=== PATIENT | male | born 1975 | race Caucasian/White ===

== ENCOUNTER 2023-01-21 17:07 | Inpatient (IN) | payer BC, MEDICAID, SELFPAY ==
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
[2023-01-21 17:33] VITALS: BP 148/98; PULSE 78; RESP 18; TEMP 36.8; O2SAT 98; BMI 26.9
[2023-01-21] MEDS: Albuterol Sulfate 90 MCG 8 GM INHALER 2 PUFF INHALE (18:34)
[2023-01-21 18:36] LABS: MANUAL DIFF FLAG NO
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
[2023-01-21 18:39] LABS: Basophils Absolute Auto 0.1 X10*3/uL (0.0-0.2); Basophils Percent Auto 0.5 % (0-2); Eosinophils Absolute Auto 0.2 X10*3/uL (0.0-0.4); Eosinophils Percent Auto 1.8 % (0-4); Hematocrit 43.9 % (42.0-52.0); Hemoglobin 15.1 g/dl (14.0-18.0); Imm Gran Abs Auto 0.04 X10*3/uL (0.00-0.03); Imm Gran Pct Auto 0.4 % (0.0-0.4); Lymphocytes Absolute Auto 1.8 X10*3/uL (1.2-4.9); Lymphocytes Percent Auto 17.9 % (20-40); Mean Corpuscular HGB Conc 34.4 g/dl (31.0-36.0); Mean Corpuscular Hemoglobin 31.2 pg (27.0-33.0); Mean Corpuscular Volume 90.7 fL (80.0-98.0); Monocytes Absolute Auto 0.6 X10*3/uL (0.1-1.2); Monocytes Percent Auto 6.1 % (2-11); Neutrophils Absolute Auto 7.4 x10*3/uL (2.0-8.3); Neutrophils Percent Auto 73.3 % (45-73); Platelet Count 351 X10*3/uL (160-400); Red Blood Count 4.84 X10*6/uL (4.60-5.80); Red Cell Distribution Width 14.1 % (11.0-16.0); White Blood Count 10.1 X10*3/uL (4.8-10.8)
[2023-01-21 18:51] LABS: Amphetamine Screen Urine Not Detected (Not Detect); Barbiturates, Urine Not Detected (Not Detect); Benzodiazepines Screen Urine Not Detected (Not Detect); Cannabinoid Screen Urine Not Detected (Not Detect); Cocaine Screen Urine POSITIVE (Not Detect); Fentanyl, urine POSITIVE (Not Detect); Opiate Screen Urine Not Detected (Not Detect); Phencyclidine Screen Urine Not Detected (Not Detect)
[2023-01-21 18:56] LABS: IDNOW Serial# 55D5AD1C; Influenza A Negative (Negative); Influenza B2 Negative (Negative)
[2023-01-21 18:57] LABS: COVID-19 Test Negative (Negative); IDNOW Serial# 6674DD1D
[2023-01-21 19:01] LABS: Anion Gap 15 (12-20); Blood Urea Nitrogen 15 mg/dL (9-16); Calcium 9.5 mg/dL (8.4-10.2); Carbon Dioxide 28 mmol/L (22-29); Chloride 97 mmol/L (96-108); Creatinine Clr Calc Pharmacy 109.4; Estimated Glomerular Filt Rate > 60; Ethanol < 10 mg/dL; Glucose Random 175 mg/dL (60-115); Potassium 4.2 mmol/L (3.3-5.1); Sodium 136 mmol/L (135-145)
[2023-01-21 19:23] VITALS: BP 134/83; PULSE 100; RESP 18; TEMP 36.8; O2SAT 100
[2023-01-21] MEDS: cloNIDine HCL 0.1 MG TABLET PO (19:28)
[2023-01-21] MEDS: diphenhydrAMINE HCL 25 MG CAPSULE 50 MG PO (19:28)
[2023-01-21] MEDS: Ondansetron ODT 4 MG TAB.RAPDIS TRANSLINGU (19:28)
[2023-01-21] MEDS: LORazepam 1 MG TABLET 2 MG PO (19:28)
--- NOTE | 2023-01-21 19:55 | PC.NURSE ---
care team at bedside.
[2023-01-21 20:29] VITALS: BP 138/106; PULSE 94; RESP 19; O2SAT 99
[2023-01-21] MEDS: DULoxetine HCl 60 MG CAPSULE.DR PO (20:30)
[2023-01-21] MEDS: lisinopriL 20 MG TABLET PO (20:30)
[2023-01-21] MEDS: metFORMIN HCl 1,000 MG TABLET 1000 MG PO (20:30)
[2023-01-21] MEDS: Gabapentin 300 MG CAPSULE 600 MG PO (20:30)
[2023-01-21] MEDS: Ezetimibe 10 MG TABLET PO (20:30)
[2023-01-21] MEDS: Celecoxib 100 MG CAPSULE PO (20:30)
[2023-01-21] MEDS: Insulin Glargine,Hum.rec.anlog 100 UNIT/ML 10 ML VIAL 36 UNIT SUBCUT (20:30)
[2023-01-21] MEDS: traZODone HCL 100 MG TABLET PO (20:30)
--- NOTE | 2023-01-21 21:20 | PC.NURSE ---
Pt with increased agitation and states he feels fidgety. Encouraged to let night medicines work. Vanita MCKEON made aware via tigertext.
[2023-01-21 21:26] LABS: Glucose, Whole Blood 104 mg/dL (60-115)
[2023-01-21] MEDS: OLANZapine 10 MG TABLET PO (21:27)
[2023-01-21] MEDS: methADONE HCl 20 MG/2 ML ORAL.CONC 30 MG PO (21:37)
--- NOTE | 2023-01-21 21:53 | PC.NURSE ---
Update given to pts at this time.
[2023-01-21 22:00] VITALS: BP 129/79; PULSE 86; RESP 19; TEMP 36.6; O2SAT 95
--- NOTE | 2023-01-22 | ECG_ITS ---
Test Reason : MED CLEARANCE Blood Pressure : / mmHG Vent. Rate : 069 BPM Atrial Rate : 069 BPM P-R Int : 152 ms QRS Dur : 098 ms QT Int : 386 ms P-R-T Axes : 004 -10 064 degrees QTc Int : 413 ms Normal sinus rhythm Normal ECG No previous ECGs available Referred By: Tristen Rosenberg Electronically Signed By:Tadeo Bethea
[2023-01-22 02:00] VITALS: BP 114/58; PULSE 69; RESP 19; TEMP 36.6; O2SAT 95
[2023-01-22 06:00] VITALS: BP 128/82; PULSE 80; RESP 17; TEMP 36.6; O2SAT 95
[2023-01-22 06:30] LABS: Glucose, Whole Blood 90 mg/dL (60-115)
--- NOTE | 2023-01-22 08:05 | PC.NURSE ---
patient continues to sleep. no signs of distress noted. chest rise and fall equal and unlabored. will CTM
[2023-01-22] MEDS: lisinopriL 20 MG TABLET PO (10:12)
[2023-01-22] MEDS: metFORMIN HCl 1,000 MG TABLET 1000 MG PO ×2 (10:12→21:01)
[2023-01-22] MEDS: Ezetimibe 10 MG TABLET PO (10:12)
[2023-01-22] MEDS: Celecoxib 100 MG CAPSULE PO ×2 (10:12→21:01)
[2023-01-22] MEDS: DULoxetine HCl 60 MG CAPSULE.DR PO (10:12)
--- NOTE | 2023-01-22 13:06 | PC.NURSE ---
patient awake. oriented x4. cooperative with staff. able to make needs known. ambulating around the unit with strong independent gait. will CTM
--- NOTE | 2023-01-22 14:44 | MHC.RECOVRN ---
Met with pt in 2 after pt received 30 mg methadone around 2100 last night. Pt laying in bed, asleep, wakes to voice. Pt reports feeling fine and tired. Pt appears drowsy. Pt reports having used 20 30 mg illicit Percocet over the course of 2 weeks due to facial pain. Pt reports hx withdrawal, does not currently feel symptomatic. Per RN, pt transferring to M3 today. Encouraged pt to inform staff if withdrawal symptoms occur. Myra Renteria APRN, aware.
--- NOTE | 2023-01-22 16:55 | PC.NURSE ---
nurse to nurse report given to Shu MARTIN on M3 at 1500
[2023-01-22 18:11] VITALS: BP 142/79; PULSE 91; RESP 18; TEMP 36.6; O2SAT 97
--- NOTE | 2023-01-22 18:45 | PC.NURSE ---
Patient arrived to M3 from the POD on a CV at 18:03. Patient signed a 3 day upon arrival. Vitals are stable upon arrival. Alert and Oriented x4.
[2023-01-22] MEDS: methADONE HCl 10 MG TABLET PO (19:22)
[2023-01-22] MEDS: traZODone HCL 100 MG TABLET PO (21:01)
[2023-01-22] MEDS: Gabapentin 300 MG CAPSULE 600 MG PO (21:01)
[2023-01-22 21:07] LABS: Glucose, Whole Blood 131 mg/dL (60-115)
[2023-01-22] MEDS: Insulin Glargine,Hum.rec.anlog 100 UNIT/ML 10 ML VIAL 36 UNIT SUBCUT (21:08)
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
[2023-01-23] MEDS: traZODone HCL 50 MG TABLET PO (00:54)
[2023-01-23] MEDS: methADONE HCl 10 MG TABLET PO ×3 (00:54→17:29)
[2023-01-23 08:15] VITALS: BP 122/64; PULSE 76; RESP 18; TEMP 36.6; O2SAT 97
[2023-01-23 08:16] LABS: Glucose, Whole Blood 150 mg/dL (60-115)
[2023-01-23 09:09] LABS: Estimated Average Glucose 143 mg/dL; Hemoglobin A1c % 6.6 %
[2023-01-23] MEDS: Ezetimibe 10 MG TABLET PO (09:14)
[2023-01-23] MEDS: DULoxetine HCl 60 MG CAPSULE.DR PO (09:14)
[2023-01-23] MEDS: Celecoxib 100 MG CAPSULE PO ×2 (09:15→20:52)
[2023-01-23] MEDS: lisinopriL 20 MG TABLET PO (09:15)
[2023-01-23] MEDS: metFORMIN HCl 1,000 MG TABLET 1000 MG PO ×2 (09:15→20:52)
[2023-01-23 09:45] LABS: Alanine Aminotransferase 23 U/L (0-40); Albumin Level 3.5 g/dL (3.5-5.0); Alkaline Phosphatase 72 U/L (39-117); Anion Gap 15 (12-20); Aspartate Amino Transferase 18 U/L (5-37); Bilirubin Direct < 0.2 mg/dL (0.0-0.5); Bilirubin Total 0.3 mg/dL (0.0-1.0); Blood Urea Nitrogen 19 mg/dL (9-16); Calcium 9.3 mg/dL (8.4-10.2); Carbon Dioxide 29 mmol/L (22-29); Chloride 98 mmol/L (96-108); Cholesterol 174 mg/dL; Estimated Glomerular Filt Rate > 60; Glucose Fasting 136 mg/dL (60-99); HDL Cholesterol 34 mg/dL; LDL Cholesterol Calculated 100 mg/dl; Potassium 4.3 mmol/L (3.3-5.1); Sodium 138 mmol/L (135-145); Total Protein 6.4 g/dL (6.5-8.0); Triglycerides 203 mg/dL
[2023-01-23 10:11] LABS: Folate 6.7 ng/mL (> or = 4.0); Free T4 (Free Thyroxine) 0.87 ng/dL (0.71-1.85); Thyroid Stimulating Hormone 0.87 uIU/mL (0.32-4.0); Vitamin B12 1459 pg/mL (200-900)
[2023-01-23] MEDS: Acetaminophen 325 MG TABLET 650 MG PO (11:09)
[2023-01-23 12:42] LABS: Glucose, Whole Blood 120 mg/dL (60-115)
[2023-01-23] MEDS: Loratadine 10 MG TABLET PO (15:28)
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
[2023-01-23] MEDS: Gabapentin 300 MG CAPSULE 600 MG PO (20:52)
[2023-01-23] MEDS: Insulin Glargine,Hum.rec.anlog 100 UNIT/ML 10 ML VIAL 36 UNIT SUBCUT (20:52)
[2023-01-23] MEDS: traZODone HCL 100 MG TABLET PO (20:52)
[2023-01-23 20:53] LABS: Glucose, Whole Blood 141 mg/dL (60-115)
[2023-01-23 20:58] VITALS: BP 116/63; PULSE 85; RESP 16; TEMP 36.6; O2SAT 97
[2023-01-24] MEDS: methADONE HCl 10 MG TABLET PO ×2 (06:15→14:24)
[2023-01-24 08:40] VITALS: BP 107/66; PULSE 99; RESP 16; TEMP 36.3; O2SAT 95
[2023-01-24 08:40] LABS: Glucose, Whole Blood 99 mg/dL (60-115)
[2023-01-24] MEDS: metFORMIN HCl 1,000 MG TABLET 1000 MG PO (08:42)
[2023-01-24] MEDS: Ezetimibe 10 MG TABLET PO (08:42)
[2023-01-24] MEDS: lisinopriL 20 MG TABLET PO (08:43)
[2023-01-24] MEDS: Loratadine 10 MG TABLET PO (08:43)
[2023-01-24] MEDS: DULoxetine HCl 60 MG CAPSULE.DR PO (08:43)
[2023-01-24] MEDS: Celecoxib 100 MG CAPSULE PO (08:44)
[2023-01-24] MEDS: Magnesium Hydrox/Alum Hydrox 30 ML ORAL.SUSP PO (08:45)
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
[2023-01-24] MEDS: Calcium Carbonate 750 MG TAB.CHEW PO ×2 (11:35→16:15)
== END 2023-01-24 16:30 | disposition home or self-care (01) | DRG 753 ==
LOC: HO.ED 01-22 01:54 → HO.PADLT16 01-22 16:46
PROVIDERS: Nurse Practitioner Family; Admitting Provider Psychiatry & Neurology Psychiatry; Emergency Provider Emergency Medicine Emergency Medical Services; Visit Provider Psychiatry & Neurology Psychiatry
DX: F39 Unspecified mood [affective] disorder (principal); R45.851 Suicidal ideations; F11.20 Opioid dependence, uncomplicated; F17.290 Nicotine dependence, other tobacco product, uncomplicated; Z71.6 Tobacco abuse counseling; G89.4 Chronic pain syndrome; Z20.822 Contact with and (suspected) exposure to COVID-19; Z79.51 Long term (current) use of inhaled steroids; Z79.4 Long term (current) use of insulin; Z79.899 Other long term (current) drug therapy
CPT/HCPCS: 36415; 80048; 80053; 80061; 80076; 80307; 82077; 82607; 82746; 82947; 83036; 84439; 84443; 85025; 87502; 87635; 93005; 99285; S9485